=== PATIENT | female | born 1965 | race Hispanic/Latino ===

== ENCOUNTER 2020-07-26 06:34 | Observation (INO) | payer BC ==
[2020-07-22 12:16] LABS: ANION GAP 11.6 mmol/L (8-16); CALCIUM 9.4 mg/dL (8.4-10.2); CREATININE, SERUM 1.31 mg/dL (0.57-1.11); POTASSIUM 4.6 mmol/L (3.5-5.1)
[~2020-07-26] VITALS: Ht 165.1 cm; Wt 112.9 kg
[~2020-07-26 06:34] MED LIST: LEVOTHYROXINE75 MCG PO; LIPITOR10 MG PO; LOSARTAN POTAS100 MG PO; NOVOLOG MI100 UNIT/1 SC; TRULICITY0.75 MG/0. SC
[2020-07-26] MEDS ORDERED: CEFAZOLIN SOD 1 GM/NS 50ML 100 ML IV ONE (07:07)
[2020-07-26] MEDS ORDERED: LIDOCAINE HCL (LTA) 4 ML SOLN ONE (07:07)
[2020-07-26] MEDS ORDERED: SCOPOLAMINE 1.5 MG PATCH ONE (07:07)
[2020-07-26] MEDS ORDERED: BUPIVACAINE 0.25% 30ML SDV ONE (08:34)
[2020-07-26] MEDS ORDERED: SUGAMMADEX SODIUM 200 MG/2 ML VIAL IV ONE (09:19)
[2020-07-26] MEDS ORDERED: ONDANSETRON HCL INJ 2MG/ML 2ML 2 MG/ML VIAL ONE ×2 (09:52→13:22)
[2020-07-26] MEDS ORDERED: METOCLOPRAMIDE HCL 10 MG/2ML VIAL ONE (09:53)
[2020-07-26] MEDS ORDERED: PROMETHAZINE HCL (IM) 25 MG/ML VIAL IM ONE (10:25)
[2020-07-26] MEDS ORDERED: SCOPOLAMINE 1.5 MG PATCH TOP ONE (11:15)
[2020-07-26 11:35] VITALS: BP 151/91
[2020-07-26] MEDS: SODIUM CHLORIDE 0.9% 1000ML 1,000 ML IV SCH ×2 (11:43→20:58)
[2020-07-26] MEDS ORDERED: MIDAZOLAM HCL 2 MG/2 ML VIAL ONE (13:03)
[2020-07-26] MEDS ORDERED: FENTANYL CITRATE/PF 100MCG/2 ML INJ ONE (13:03)
[2020-07-26] MEDS ORDERED: SEVOFLURANE INHAL SOLN 250 ML PEN BTL ONE (13:22)
[2020-07-26] MEDS ORDERED: DEXAMETHASONE SOD PHOS INJ 4 MG/ML VIAL ONE (13:22)
[2020-07-26] MEDS ORDERED: LIDOCAINE HCL 2% LOCAL INJ 5 ML SDV VIAL INJ ONE (13:22)
[2020-07-26] MEDS ORDERED: PROPOFOL IV EMULSION 10 MG/ML 20 ML VIAL ONE (13:22)
[2020-07-26] MEDS ORDERED: ROCURONIUM BROMIDE 10 MG/ML 5ML VIAL IV ONE (13:22)
[2020-07-26] MEDS ORDERED: GLYCOPYRROLATE INJ 0.2 MG/ML VIAL ONE (13:22)
[2020-07-26] MEDS ORDERED: LIDOCAINE HCL 2% JELLY 5 ML TUBE ONE (13:22)
[2020-07-26] MEDS ORDERED: NEOSTIGMINE 1 MG/ML 10ML VIAL ONE (13:22)
[2020-07-26 13:25] VITALS: BP 151/91
[2020-07-26 13:38] VITALS: BP 151/91
[2020-07-26 17:04] VITALS: BP 120/50
[2020-07-26] MEDS: ONDANSETRON HCL INJ 2MG/ML 2ML 2 MG/ML VIAL IV PRN (18:08)
[2020-07-26] MEDS: MORPHINE SULFATE INJ 2 MG/ML SYR IV PRN (18:28)
[2020-07-26] MEDS: ENOXAPARIN SOD INJ 40 MG/0.4 ML SYR SC SCH (20:00)
[2020-07-26 22:06] VITALS: BP 109/52
[2020-07-26 22:08] VITALS: BP 109/52
[2020-07-26] MEDS ORDERED: HYDRALAZINE HCL 20 MG/ML VIAL IV PRN (22:45)
[2020-07-27 01:02] VITALS: BP 112/60
[2020-07-27 04:00] VITALS: BP 118/75
[2020-07-27] MEDS: SODIUM CHLORIDE 0.9% 1000ML 1,000 ML IV SCH ×2 (04:00→07:12)
[2020-07-27] MEDS: MORPHINE SULFATE INJ 2 MG/ML SYR IV PRN (04:31)
[2020-07-27] MEDS: ONDANSETRON HCL INJ 2MG/ML 2ML 2 MG/ML VIAL IV PRN (04:31)
[2020-07-27 05:14] LABS: BASOPHILS % 0.1 % (0.0-1.0); EOSINOPHILS % 0.1 % (0.0-6.0); HEMATOCRIT 35.3 % (34.2-44.1); HEMOGLOBIN 11.8 g/dL (12.0-16.0); LYMPHOCYTES # (AUTO) 1.6 (1.0-3.2); LYMPHOCYTES % 19.3 % (18.0-39.1); MEAN CORPUSCULAR HEMOGLOBIN 29.5 pg (28-32); MEAN CORPUSCULAR HGB CONC 33.4 g/dL (31-35); MEAN CORPUSCULAR VOLUME 88.3 fL (81-99); MONOCYTES # (AUTO) 0.7 (0.2-0.8); MONOCYTES % 8.3 % (4.4-11.3); NEUTROPHILS % 71.8 % (38.7-80.0); PLATELET COUNT 212 x10e3/uL (140-360); RED CELL DISTRIBUTION WIDTH 12.8 % (11.7-14.4)
[2020-07-27 05:41] LABS: ANION GAP 18.2 mmol/L (8-16); CALCIUM 8.7 mg/dL (8.4-10.2); CREATININE, SERUM 1.11 mg/dL (0.57-1.11); MAGNESIUM 1.8 MG/DL (1.3-2.1); PHOSPHORUS 3.1 MG/DL (2.3-4.7); POTASSIUM 4.2 mmol/L (3.5-5.1)
[2020-07-27] MEDS ORDERED: HYDROCODONE/APAP 7.5MG-325MG 1 EA TAB PO PRN (07:00)
[2020-07-27 08:00] VITALS: BP 128/52
[2020-07-27] MEDS: ENOXAPARIN SOD INJ 40 MG/0.4 ML SYR SC SCH (08:05)
[2020-07-27 10:54] VITALS: BP 128/52
[2020-07-27 12:09] VITALS: BP 117/52
== END 2020-07-27 15:06 | disposition home or self-care (01) ==
LOC: OR 06:34 → MED/SURG 07:37 → EDSTATUS 09:00 → OR 10:50 → IMCU 10:50 → OR 07-27 15:06
PROVIDERS: ADMIT Surgery; ATTEND Surgery
DX: E66.01 Morbid (severe) obesity due to excess calories (principal); Z68.41 Body mass index [BMI] 40.0-44.9, adult; N17.9 Acute kidney failure, unspecified; E86.0 Dehydration; E10.21 Type 1 diabetes mellitus with diabetic nephropathy; Z79.4 Long term (current) use of insulin; G47.33 Obstructive sleep apnea (adult) (pediatric); I10 Essential (primary) hypertension; Z01.810 Encounter for preprocedural cardiovascular examination; Z01.812 Encounter for preprocedural laboratory examination; Z20.828 Contact with and (suspected) exposure to other viral communicable diseases; Z96.41 Presence of insulin pump (external) (internal)
CPT/HCPCS: 36415 ×2; 43775; 80048 ×2; 82948; 83036; 83735; 84100; 85025; 93005; G0378 ×2; J0690; J1100; J1650 ×2; J2001 ×2; J2250; J2270 ×2; J2405 ×2; J2550; J2704; J2710; J2765; J3010; J7030 ×2; U0002